=== PATIENT | male | born 1985 | race Caucasian/White ===

== ENCOUNTER 2020-09-18 09:21 | Outpatient (REF) | payer OTHER, SELFPAY ==
--- NOTE | 2020-09-18 09:28 | XR_ITS ---
EXAMINATION: XR FOOT, LEFT CLINICAL INFORMATION: Injury COMPARISON: None TECHNIQUE: AP, lateral, and oblique views of the left foot. FINDINGS: There is a nondisplaced fracture of the distal tuft of the fifth toe. No other fracture is seen. Joint spaces are normal. There is adjacent soft tissue swelling. XR/XR foot LT min 3V IMPRESSION: Nondisplaced fracture of the distal tuft of the fifth toe.
== END 2020-09-18 09:22 | disposition home or self-care (01) ==
LOC: HO.HMGCX 09:21
PROVIDERS: PCP Internal Medicine; Visit Provider Nurse Practitioner Family
DX: S99.922A Unspecified injury of left foot, initial encounter (principal)
CPT/HCPCS: 73630

== ENCOUNTER → 2020-10-09 14:20 | Outpatient (BNVA) | payer OTHER, SELFPAY | PROVIDERS: PCP Internal Medicine; Visit Provider Physician Assistant | DX: S92.352A Displaced fracture of fifth metatarsal bone, left foot, initial encounter for closed fracture (principal) | CPT/HCPCS: 99202 ==

== ENCOUNTER 2021-09-13 10:23 | Outpatient (REF) | payer OTHER, SELFPAY ==
--- NOTE | ~2021-09-13 | XR_ITS ---
EXAMINATION: XR KNEE, RIGHT CLINICAL INFORMATION: Pain. COMPARISON: None TECHNIQUE: Two views of the right knee. FINDINGS: The tricompartment joint space is maintained normal. No visible acute fracture or dislocation seen. There is large prominent anterior tibial eminence with enthesophyte superiorly and mild anterior soft tissue swelling. No acute fracture seen. XR/XR knee RT 2V IMPRESSION: Large enthesophyte superior to anterior tibial eminence. There is mild soft tissue swelling. No visible acute fracture or dislocation.
[2021-09-13 14:10] LABS: MANUAL DIFF FLAG NO
[2021-09-13 14:30] LABS: Basophils Percent Auto 0.7 % (0-2); Eosinophils Percent Auto 0.7 % (0-4); Hematocrit 45.4 % (42-52); Hemoglobin 14.7 g/dl (14.0-18.0); Imm Gran Abs Auto 0.01 X10*3/uL (0.00-0.03); Imm Gran Pct Auto 0.2 % (0.0-0.4); Lymphocytes Absolute Auto 0.9 X10*3/uL (1.2-4.9); Lymphocytes Percent Auto 20.9 % (20-40); Mean Corpuscular HGB Conc 32.4 g/dl (31.0-36.0); Mean Corpuscular Hemoglobin 28.5 pg (27.0-33.0); Mean Corpuscular Volume 88.2 fL (80-98); Mean Platelet Volume 11.5 fL (9.4-12.4); Monocytes Absolute Auto 0.4 X10*3/uL (0.1-1.2); Neutrophils Absolute Auto 2.9 X10*3/uL (2.0-8.3); Neutrophils Percent Auto 68.5 % (45-73); Platelet Count 210 X10*3/uL (160-400); Red Blood Count 5.15 X10*6/uL (4.60-5.80); Red Cell Distribution Width 12.9 % (11.0-16.0); White Blood Count 4.2 X10*3/uL (4.8-10.8)
[2021-09-13 14:35] LABS: Alanine Aminotransferase 34 U/L (0-40); Albumin Level 4.7 g/dL (3.5-5.0); Alkaline Phosphatase 88 U/L (39-117); Anion Gap 15 (12-20); Aspartate Amino Transferase 32 U/L (5-37); Bilirubin Total 0.6 mg/dL (0.0-1.0); Blood Urea Nitrogen 13 mg/dL (9-16); Calcium 10.2 mg/dL (8.4-10.2); Carbon Dioxide 25 mmol/L (22-29); Chloride 103 mmol/L (96-108); Cholesterol 198 mg/dL; Estimated Glomerular Filt Rate > 60; Glucose Fasting 99 mg/dL (60-99); HDL Cholesterol 50 mg/dL; LDL Cholesterol Calculated 132 mg/dl; Potassium 5.3 mmol/L (3.3-5.1); Sodium 138 mmol/L (135-145); Total Protein 7.4 g/dL (6.5-8.0); Triglycerides 80 mg/dL
[2021-09-13 14:57] LABS: TSH reflex Free T4 2.42 uIU/mL (0.32-4.0)
== END 2021-09-13 10:24 | disposition home or self-care (01) ==
LOC: HO.HMGCX 10:23
PROVIDERS: PCP Internal Medicine; Visit Provider Internal Medicine
DX: Z00.01 Encounter for general adult medical examination with abnormal findings (principal); M25.561 Pain in right knee; R79.89 Other specified abnormal findings of blood chemistry; E66.3 Overweight; F32.9 Major depressive disorder, single episode, unspecified; F41.9 Anxiety disorder, unspecified; F52.21 Male erectile disorder; R06.02 Shortness of breath; Z72.0 Tobacco use
CPT/HCPCS: 36415; 73560; 80053; 80061; 84443; 85025

== ENCOUNTER → 2021-10-08 13:26 | Outpatient (BNVA) | payer OTHER, SELFPAY | PROVIDERS: PCP Internal Medicine; Visit Provider Physician Assistant | DX: M25.561 Pain in right knee (principal) | CPT/HCPCS: 99212 ==

== ENCOUNTER 2022-01-27 20:06 | Emergency (ER) | payer OTHER, SELFPAY ==
[2022-01-27 20:40] VITALS: BP 140/95; PULSE 82; RESP 18; TEMP 36.8; O2SAT 96; BMI 28.2
--- NOTE | 2022-01-27 21:48 | ED_ITS ---
Review of Systems Review of Systems: Constitutional: No Fever, No Chills ENT/Mouth: No Ear Pain, No Hoarseness, No sore throat Eyes: No Eye Pain, No Swelling, No Redness, No Foreign Body Cardiovascular: No Chest Pain, No SOB Respiratory: No Cough, No Dyspnea Gastrointestinal: No Nausea, No Vomiting, No Diarrhea, No abdominal Pain Genitourinary: No Dysuria, No Hematuria Musculoskeletal: positive right hand burning pain, No Myalgias, No Joint Swelling Skin: No Skin lacerations, No rash Neuro: No Weakness, No Numbness, No Paresthesias, No Loss of Consciousness, No Dizziness, No Headache Psych: No Anxiety/Panic, No Depression Heme/Lymph: no easy bruising, no Lymphadenopathy Endocrine: No Polyuria, No Polydipsia Yes all other systems are reviewed and are negative [facility], [facility] Past Medical History Attestation statement: The following information was validated with the patient. Source: old records reviewed Medical History History of alcohol abuse Surgical History History of eye surgery S/P ACL surgery S/P bilateral foot surgery Family History Family History Father Diabetes HTN (hypertension) Mother Lung cancer Brother No problems noted. Sister No problems noted. Sister No problems noted. Sister No problems noted. Social History Social History Housing: House Alcohol intake: former Patient Tobacco Use Status: Former Tobacco user Tobacco use type: Cigarette Advance Directives: No Advance Directives Information Provided: No service: Yes Current occupational status: employed Current occupation: [employer]. Physical Exam Vital Signs: Vital Signs: Last Vital Signs Temp 98.3 F 01/27/22 20:40 Pulse 82 01/27/22 20:40 Resp 18 01/27/22 20:40 BP 140/95 H 01/27/22 20:40 Pulse Ox 96 01/27/22 20:40 BMI result Body Mass Index 28.2 Appearance: Alert. Oriented X3. No acute distress. Eyes: Pupils equal, round and reactive to light. ENT: Pharynx normal. Neck: Normal inspection. Neck supple. CVS: Normal heart rate and rhythm. Pulses normal. Respiratory: No respiratory distress. Breath sounds normal. Abdomen: Soft and nontender. Skin: Skin warm and dry. Normal skin color. Normal skin turgor. Extremities: Full range of motion, strength 5/5. Gait well-balanced will order a Neuro: No motor deficit. No sensory deficit. Cranial nerves 2-12 intact Course Course Course Narrative: 36-year-old male presents for right hand burning after chemical exposure. States that he was cleaning with comment and bleach, noted some burning to his right hand and a greasy or oily feeling. Stated that he Googled what was happen ing, and said that bleach was pulling the oils out of his hand. He did wash his hands with copious amounts of water and Judy dish soap. At this time he does not have any visible injury, no blistering, redness, or skin disruption to the right hand. Has full range of motion, strength 5/5, no indication of injury at this time. Chemical safety education provided to the patient was well received. Plan of care is to discharge home with no further course of action. Patient verbalized understanding of and agrees to plan of care discharge home. Verbalized understanding of signs and symptoms indicating need for emergent intervention MDM - Burn/Smoke Inhalation MDM Narrative Medical decision making narrative: Chemical burn Medical Records Attestation: I reviewed the patient's medical records. Discharge Plan Discharge Clinical Impression: Chemical burn Patient Disposition: Home, Self-Care Instructions: Chemical Skin Burn (ED) Additional Instructions: You were evaluated for burning to her right hand after exposure to bleach and comment. Please use gloves when using these products. Open windows to ensure proper ventilation. Do not mix bleach with any other substances. Thank you for choosing this emergency department for evaluation. Please follow-up with primary care physician as needed. Return to the emergency department for any new, concerning, or worsening symptoms. Prescriptions: No Action tadalafil 5 mg tablet 5 mg PO DAILY 0RF gabapentin 400 mg capsule 400 mg PO TID 0RF hydroxyzine pamoate 50 mg capsule 50 mg PO TID 0RF bupropion HCl 300 mg tablet extended release 24 hr 300 mg PO DAILY 0RF bupropion HCl 150 mg tablet extended release 24 hr 150 mg PO QAM 0RF Interventions: LWBS Worksheet Last Done: 01/27/22 20:32 ED Discharge Assessment Last Done: 01/27/22 22:12 Discharge Date/Time: 01/27/22 22:14 HPI - Burn/Smoke Inhalation General Chief complaint: Skin/Abscess/Foreign Body Stated complaint: possible chem burn, tingling, rt hand Source: patient Mode of arrival: ambulatory Limitations: no limitations History of Present Illness HPI Narrative: 36-year-old male presents with right hand burning and tingling after using, and bleach together. MD Complaint: chemical exposure Onset (ago): hour(s) (Within the hour of arrival) Type of Exposure: chemical (Bleach and comment) Smoke Inhalation: none Place: home Location - Extremities: right: hand Severity: mild Severity scale (1-10): 1 Associated symptoms: denies other symptoms Treatment Prior to Arrival: other (Irrigation) Related Data Home Medications Medication Instructions Recorded Confirmed tadalafil 5 mg tablet 5 mg PO DAILY 08/24/20 05/16/21 bupropion HCl 150 mg 24 hr tablet, 150 mg PO QAM 09/13/21 09/13/21 extended release bupropion HCl 300 mg 24 hr tablet, 300 mg PO DAILY 09/13/21 09/13/21 extended release gabapentin 400 mg capsule 400 mg PO TID 09/13/21 09/13/21 hydroxyzine pamoate 50 mg capsule 50 mg PO TID 09/13/21 09/13/21 Allergies Allergy/AdvReac Type Severity Reaction Status Date / Time No Known Allergies Allergy Verified 01/27/22 20:39 [No Known Allergies*]
== END 2022-01-27 22:14 | disposition home or self-care (01) ==
PROVIDERS: Emergency Provider Internal Medicine; PCP Internal Medicine
DX: T54.91XA Toxic effect of unspecified corrosive substance, accidental (unintentional), initial encounter (principal); T23.401A Corrosion of unspecified degree of right hand, unspecified site, initial encounter; T32.0 Corrosions involving less than 10% of body surface; Y93.E5 Activity, floor mopping and cleaning; Y92.019 Unspecified place in single-family (private) house as the place of occurrence of the external cause; Y99.9 Unspecified external cause status
CPT/HCPCS: 99283

== ENCOUNTER 2022-03-04 11:45 | Outpatient (REF) | payer OTHER, SELFPAY ==
[2022-03-04 14:06] LABS: MANUAL DIFF FLAG NO
[2022-03-04 14:11] LABS: Basophils Percent Auto 0.8 % (0-2); Eosinophils Absolute Auto 0.1 X10*3/uL (0.0-0.4); Eosinophils Percent Auto 1.6 % (0-4); Hemoglobin 14.7 g/dl (14.0-18.0); Imm Gran Abs Auto 0.03 X10*3/uL (0.00-0.03); Imm Gran Pct Auto 0.8 % (0.0-0.4); Lymphocytes Absolute Auto 1.5 X10*3/uL (1.2-4.9); Lymphocytes Percent Auto 40.2 % (20-40); Mean Corpuscular HGB Conc 33.4 g/dl (31.0-36.0); Mean Corpuscular Hemoglobin 28.8 pg (27.0-33.0); Mean Corpuscular Volume 86.3 fL (80.0-98.0); Mean Platelet Volume 10.6 fL (9.4-12.4); Monocytes Absolute Auto 0.4 X10*3/uL (0.1-1.2); Neutrophils Absolute Auto 1.7 x10*3/uL (2.0-8.3); Neutrophils Percent Auto 46.6 % (45-73); Platelet Count 210 X10*3/uL (160-400); Red Cell Distribution Width 12.9 % (11.0-16.0); White Blood Count 3.7 X10*3/uL (4.8-10.8)
[2022-03-04 14:21] LABS: Alanine Aminotransferase 29 U/L (0-40); Albumin Level 4.4 g/dL (3.5-5.0); Alkaline Phosphatase 57 U/L (39-117); Anion Gap 12 (12-20); Aspartate Amino Transferase 22 U/L (5-37); Bilirubin Total 0.4 mg/dL (0.0-1.0); Blood Urea Nitrogen 10 mg/dL (9-16); Calcium 9.7 mg/dL (8.4-10.2); Carbon Dioxide 28 mmol/L (22-29); Chloride 103 mmol/L (96-108); Cholesterol 220 mg/dL; Estimated Glomerular Filt Rate > 60; Glucose Fasting 99 mg/dL (60-99); HDL Cholesterol 53 mg/dL; LDL Cholesterol Calculated 141 mg/dl; Potassium 4.7 mmol/L (3.3-5.1); Sodium 138 mmol/L (135-145); Total Protein 7.1 g/dL (6.5-8.0); Triglycerides 132 mg/dL
[2022-03-04 14:35] LABS: Estimated Average Glucose 88 mg/dL; Hemoglobin A1c % 4.7 %
[2022-03-04 14:49] LABS: TSH reflex Free T4 2.55 uIU/mL (0.32-4.0)
[2022-03-05 04:18] LABS: HIV AB/AG Nonreactive (Nonreactive); HIV Num 1 0.11 S/CO (0.00-0.99)
== END 2022-03-04 11:46 | disposition home or self-care (01) ==
LOC: HO.HMGCLDS 11:45
PROVIDERS: PCP Internal Medicine; Visit Provider Internal Medicine
DX: Z00.01 Encounter for general adult medical examination with abnormal findings (principal); Z11.4 Encounter for screening for human immunodeficiency virus [HIV]; F32.9 Major depressive disorder, single episode, unspecified; F41.9 Anxiety disorder, unspecified; F52.21 Male erectile disorder
CPT/HCPCS: 36415; 80053; 80061; 83036; 84443; 85025; 87389